=== PATIENT | male | born 1940 | race Caucasian/White ===

== ENCOUNTER 2018-04-29 08:34 | Emergency (ER) | payer MEDICARE, BC ==
[2018-04-29] MEDS ORDERED: Pantoprazole IV* 40 MG IV ONE (09:28)
[2018-04-29] MEDS ORDERED: NS 0.9% 1000 ML* 1,000 ML IV SCH (09:30)
[2018-04-29 10:01] LABS: INR 0.95 (0.77-1.02)
[2018-04-29 10:27] LABS: ABS Basophils 0 10^3/ul (0-0.2); ABS Eosinophils 0.1 10^3/ul (0-0.6); ABS Lymphocytes 0.9 10^3/ul (1.0-4.8); ABS Monocytes 0.8 10^3/ul (0-0.8); ABS Neutrophils 9.3 10^3/ul (1.5-7.7); ABS Nucleated RBC 0 10^3/ul; Eosinophil % 0.6 % (0-6); Hematocrit 38 % (42-52); Hemoglobin 12.1 g/dl (14.0-18.0); Mean Corpuscular HGB Conc 32 g/dl (31-36); Mean Corpuscular Hemoglobin 31 pg (27-31); Mean Corpuscular Volume 98 fL (80-94); Mean Platelet Volume 9.3 um3 (7.4-10.4); Nucleated Red Blood Cells % 0; Platelet Count 175 10^3/ul (150-450); Red Blood Count 3.88 10^6/ul (4.00-5.40); Red Cell Distribution Width 15 % (10.5-15); White Blood Count 11.2 10^3/ul (3.5-10.8)
[2018-04-29 10:39] LABS: EGFR Non-African American 37.2 (>60)
--- NOTE | 2018-04-29 10:42 | RAD ---
Indication: Vomiting, diarrhea. CT of the abdomen and pelvis was performed without oral or IV contrast administration. Coronal and sagittal reconstructed images were obtained. The lung bases demonstrate no pleural fluid, nodules or masses. Heart is of normal size without evidence of pericardial effusion. Liver is normal in size. No focal lesions or intrahepatic ductal dilatation is noted. The gallbladder has been surgically resected. The common duct is not dilated. The pancreas demonstrates no mass or pancreatic duct dilatation. The spleen is normal in size. No adrenal masses are noted. The kidneys demonstrate no hydronephrosis in either kidney. No retroperitoneal lymphadenopathy is noted. No dilated loops of bowel are noted. Aorta and inferior vena cava are unremarkable. CT of the pelvis demonstrates no retroperitoneal or pelvic lymphadenopathy. Urinary bladder is unremarkable. Diverticulosis of the sigmoid colon without definite evidence of diverticulitis is noted. No hernias are noted. No free fluid is identified. There is a hiatal hernia present. IMPRESSION: No definite bowel obstruction is noted. Diverticulosis of the sigmoid colon without evidence of diverticulitis. Patient is status post cholecystectomy. There is a hiatal hernia present.
--- NOTE | 2018-04-29 13:27 | ED ---
Sergo Polanco Tariq, scribed for Vlad Neri MD on 04/29/18 at 1056 . Complex/Multi-Sys Presentation - HPI Summary HPI Summary: A 77 y/o male COLBY presents to ED c/o V/D. According to the pt, he woke up this morning with V/D. He noted that his emesis was brown and reminds him of when he had an upper GI bleed previously. As per triage, "coffee ground emesis started this AM". Pt denies abdominal pain and lightheadedness. PMHx of stomach ulcers. Currently, pt is not on any blood thinners. - History Of Current Complaint Chief Complaint: EDNauseaVomitDiarrh Time Seen by Provider: 04/29/18 08:56 Hx Obtained From: Patient Timing: Hours - Earlier this morning Associated Signs And Symptoms: Negative: Abdominal Pain - Allergies/Home Medications Allergies/Adverse Reactions: Allergies Allergy/AdvReac Type Severity Reaction Status Date / Time carbidopa [From Sinemet] Allergy Hallucinati Verified 04/29/18 09:20 ons gentamicin Allergy Unknown Verified 04/29/18 09:20 Reaction Details levodopa [From Sinemet] Allergy Hallucinati Verified 04/29/18 09:20 ons magnesium citrate Allergy Unknown Verified 04/29/18 09:20 Reaction Details sulfamethoxazole Allergy Unknown Verified 04/29/18 09:20 [From Bactrim] Reaction Details trimethoprim [From Bactrim] Allergy Unknown Verified 04/29/18 09:20 Reaction Details Home Medications: Home Medications Acetaminophen/Diphenhydramine [Acetaminophen Pm Caplet] 2 each PO DAILY [History Confirmed 04/29/18] Allopurinol [Zyloprim 300 MG TAB] 300 mg PO DAILY 04/29/18 [History Confirmed ] Bisoprolol/Hydrochlorothiazide [Bisoprolol-Hctz 2.5-6.25 mg Tb] 1 each PO DAILY 04/29/18 [History Confirmed 04/29/18] Cholecalciferol (Vitamin D3) [D 5000] 5,000 unit PO DAILY 04/29/18 [History Confirmed 04/29/18] Cilostazol TAB* [Pletal TAB*] 100 mg PO BID 04/29/18 [History Confirmed 04/29/18 ] Ezetimibe/Simvastatin [Vytorin 10-40 mg] 1 tab PO BEDTIME 04/29/18 [History Confirmed 04/29/18] Inulin/Chromium Picolinate [Fiber Gummies] 1 each PO BID 04/29/18 [History Confirmed 04/29/18] Multivit-Mins/Iron/Folic/Lycop [Centrum Ultra Mens] 1 tab PO DAILY 04/29/18 [ History Confirmed 04/29/18] Pantoprazole Sodium 40 mg PO DAILY 04/29/18 [History Confirmed 04/29/18] Pioglitazone HCl 30 mg PO DAILY 04/29/18 [History Confirmed 04/29/18] Ramipril [Altace] 5 mg PO DAILY 04/29/18 [History Confirmed 04/29/18] Sodium Bicarbonate 650 mg PO BID 04/29/18 [History Confirmed 04/29/18] Sucralfate [Carafate] 1 gm PO ACHS 04/29/18 [History Confirmed 04/29/18] dilTIAZem HCl [Diltiazem HCl ER] 180 mg PO DAILY 04/29/18 [History Confirmed ] PMH/Surg Hx/FS Hx/Imm Hx Endocrine/Hematology History: Reports: Hx Diabetes Cardiovascular History: Denies: Hx Hypertension Infectious Disease History: No Infectious Disease History: Denies: Traveled Outside the [place] in Last 30 Days - Family History Known Family History: Positive: Other - Colon Cancer, HBP, Heart Disease, Parkinsons Negative: Diabetes - Social History Alcohol Use: None Substance Use Type: Reports: None Smoking Status (MU): Former Smoker Review of Systems Negative: Fever Positive: Vomiting, Diarrhea. Negative: Abdominal Pain Neurological: Other - NEGATIVE: lightheadedness All Other Systems Reviewed And Are Negative: Yes Physical Exam - Summary Physical Exam Summary: General:Brown secretions on chin and legs. No acute distress. Skin:warm, color reflects adequate perfusion, dry Head:normal Eyes:EOMI, EVAN ENT:normal Neck:supple, nontender Respiratory:CTA, breath sounds present Cardiovascular:RRR Abdomen:soft, nontender. Non-tender to palpation. Bowel:present. Positive bowel sounds. Musculoskeletal:normal, strength/ROM intact Neurological:sensory/motor intact, A&O x3 Psychological:affect/mood appropriate Rectal Exam: Stool was brown. Triage Information Reviewed: Yes Vital Signs On Initial Exam: Initial Vitals Temp Pulse Resp BP Pulse Ox 97.6 F 83 16 165/64 96 04/29/18 08:37 04/29/18 08:37 04/29/18 08:37 04/29/18 08:37 04/29/18 08:37 Vital Signs Reviewed: Yes Diagnostics - Vital Signs Vital Signs Temp Pulse Resp BP Pulse Ox 04/29/18 10:40 79 17 152/60 92 04/29/18 10:18 78 18 96 04/29/18 10:00 78 18 98 04/29/18 09:48 80 15 142/63 99 04/29/18 09:18 81 20 150/63 97 04/29/18 09:00 82 23 96 04/29/18 08:48 81 19 157/68 96 04/29/18 08:47 80 16 96 04/29/18 08:37 97.6 F 83 16 165/64 96 - Laboratory Lab Results: Lab Results 04/29/18 04/29/18 04/29/18 Range/Units 09:42 10:03 10:03 WBC 11.2 H (3.5-10.8) 10^3/ul RBC 3.88 L (4.00-5.40) 10^6/ul Hgb 12.1 L (14.0-18.0) g/dl Hct 38 L (42-52) % MCV 98 H (80-94) fL MCH 31 (27-31) pg MCHC 32 (31-36) g/dl RDW 15 (10.5-15) % Plt Count 175 (150-450) 10^3/ul MPV 9.3 (7.4-10.4) um3 Neut % (Auto) 83.6 H (38-83) % Lymph % (Auto) 8.0 L (25-47) % [place] % (Auto) 7.5 H (0-7) % Eos % (Auto) 0.6 (0-6) % Baso % (Auto) 0.3 (0-2) % Absolute Neuts (auto) 9.3 H (1.5-7.7) 10^3/ul Absolute Lymphs (auto) 0.9 L (1.0-4.8) 10^3/ul Absolute Monos (auto) 0.8 (0-0.8) 10^3/ul Absolute Eos (auto) 0.1 (0-0.6) 10^3/ul Absolute Basos (auto) 0 (0-0.2) 10^3/ul Absolute Nucleated RBC 0 10^3/ul Nucleated RBC % 0 INR (Anticoag Therapy) 0.95 (0.77-1.02) APTT 31.3 (26.0-36.3) seconds Sodium 135 (135-145) mmol/L Potassium 4.8 (3.5-5.0) mmol/L Chloride 103 (101-111) mmol/L Carbon Dioxide 25 (22-32) mmol/L Anion Gap 7 (2-11) mmol/L BUN 36 H (6-24) mg/dL Creatinine 1.78 H (0.67-1.17) mg/dL Est GFR ( Amer) 45.0 (>60) Est GFR (Non-Af Amer) 37.2 (>60) BUN/Creatinine Ratio 20.2 H (8-20) Glucose 164 H (70-100) mg/dL Lactic Acid (0.5-2.0) mmol/L Calcium 9.6 (8.6-10.3) mg/dL Total Bilirubin 0.30 (0.2-1.0) mg/dL AST 14 (13-39) U/L ALT 9 (7-52) U/L Alkaline Phosphatase 69 (34-104) U/L C-Reactive Protein 4.80 (<8.01) mg/L B-Natriuretic Peptide ( - 100) pg/mL Total Protein 6.8 (6.4-8.9) g/dL Albumin 3.6 (3.2-5.2) g/dL Globulin 3.2 (2-4) g/dL Albumin/Globulin Ratio 1.1 (1-3) Lipase 28 (11.0-82.0) U/L Blood Type Antibody Screen 04/29/18 04/29/18 04/29/18 Range/Units 10:03 10:03 10:03 WBC (3.5-10.8) 10^3/ul RBC (4.00-5.40) 10^6/ul Hgb (14.0-18.0) g/dl Hct (42-52) % MCV (80-94) fL MCH (27-31) pg MCHC (31-36) g/dl RDW (10.5-15) % Plt Count (150-450) 10^3/ul MPV (7.4-10.4) um3 Neut % (Auto) (38-83) % Lymph % (Auto) (25-47) % [place] % (Auto) (0-7) % Eos % (Auto) (0-6) % Baso % (Auto) (0-2) % Absolute Neuts (auto) (1.5-7.7) 10^3/ul Absolute Lymphs (auto) (1.0-4.8) 10^3/ul Absolute Monos (auto) (0-0.8) 10^3/ul Absolute Eos (auto) (0-0.6) 10^3/ul Absolute Basos (auto) (0-0.2) 10^3/ul Absolute Nucleated RBC 10^3/ul Nucleated RBC % INR (Anticoag Therapy) (0.77-1.02) APTT (26.0-36.3) seconds Sodium (135-145) mmol/L Potassium (3.5-5.0) mmol/L Chloride (101-111) mmol/L Carbon Dioxide (22-32) mmol/L Anion Gap (2-11) mmol/L BUN (6-24) mg/dL Creatinine (0.67-1.17) mg/dL Est GFR ( Amer) (>60) Est GFR (Non-Af Amer) (>60) BUN/Creatinine Ratio (8-20) Glucose (70-100) mg/dL Lactic Acid 1.1 (0.5-2.0) mmol/L Calcium (8.6-10.3) mg/dL Total Bilirubin (0.2-1.0) mg/dL AST (13-39) U/L ALT (7-52) U/L Alkaline Phosphatase (34-104) U/L C-Reactive Protein (<8.01) mg/L B-Natriuretic Peptide 88 ( - 100) pg/mL Total Protein (6.4-8.9) g/dL Albumin (3.2-5.2) g/dL Globulin (2-4) g/dL Albumin/Globulin Ratio (1-3) Lipase (11.0-82.0) U/L Blood Type O Positive Antibody Screen Pending Result Diagrams: 04/29/18 10:03 04/29/18 10:03 Lab Statement: Any lab studies that have been ordered have been reviewed, and results considered in the medical decision making process. - CT CT A/P CT Interpretation Completed By: Radiologist - No definite bowel obstruction is noted. Diverticulosis of the sigmoid colon without evidence of diverticulitis. Patient is status post cholecystectomy. There is a hiatal hernia present. ED PHYSICIAN REVIEWED THIS RADIOLOGY REPORT. - EKG 0937 Cardiac Rate: NL - 79 BPM EKG Rhythm: Sinus Rhythm ST Segment: Normal Ectopy: None EKG Interpretation: Borderline PV interval and RI is 217. Right bundle branch block. Re-Evaluation - Re-Evaluation First Eval Re-Evaluation Time: 11:21 Comment: No vomitting. Discussed results. Complex Multi-Symp Course/Dx Course Of Treatment: HOSPITALIST CONSULTED AND SAW PATIENT IN THE ED. [facility] DOES NOT HAVE GI COVERAGE TODAY. THE PATIENT HAS A HX OF UPPER GI BLEEDS THEREFORE, TRANSFER TO [facility] WHERE THEY HAVE GI COVERAGE. ACCEPTED IN TRANSFER BY DR MORATAYA. STABLE AT TRANSFER. CRITICAL CARE TIME LESS THAN 30 MINUTES. - Diagnoses Provider Diagnoses: Vomiting, Diarrhea, GI bleed - Physician Notifications Discussed Care Of Patient With: Jabari Dos Santos - Concerned about GI bleed. Since there is no GI coverage, plan is to transfer to [facility] Time Discussed With Above Provider: 12:35 Discharge - Sign-Out/Discharge Documenting (check all that apply): Discharge/Admit/Transfer - Discharge Plan Condition: Stable Disposition: TRANS HIGHER LVL OF CARE FAC Referrals: Jose Giraldo MD [Primary Care Provider] - - Billing Disposition and Condition Condition: STABLE Disposition: Trans Higher Lvl of Care Fac The documentation as recorded by the Sergo jones Tariq accurately reflects the service I personally performed and the decisions made by me, Vlad Neri MD.
--- NOTE | 2018-04-29 13:33 | RAD ---
Indication: Vomiting. Single frontal view of the chest performed at 1005 hours was reviewed. No prior study is available.. No mediastinal shift is noted. Heart is of normal size and configuration. Lung day appear clear. Patient is status post changed sternal thoracotomy. IMPRESSION: NO ACTIVE CARDIOPULMONARY DISEASE IS NOTED.
[2018-04-29 14:58] VITALS: BP 152/70
--- NOTE | 2018-04-29 22:35 | CONS ---
[facility] MEDICINE CONSULTATION REPORT: DATE OF CONSULT: 04/29/18 - EMERGENCY DEPT PROVIDER: Jocelyn Brandt NP ATTENDING PHYSICIAN: Dr. Neri. CONSULTING PHYSICIAN: Dr. Aldair Dos Santos (dictated by Jocelyn Brandt NP). REASON FOR CONSULT: GI bleed. HISTORY OF PRESENT ILLNESS: Mr. De Santiago is a 77-year-old gentleman who carries a past history medical history significant for hypertension, diabetes, chronic kidney disease, gout, gastritis, increased triglycerides, peripheral vascular disease, TN at the age of 47, coronary artery disease with bypass, gastritis, bleeding ulcers in 2013, who presented to the emergency room after waking this morning and vomiting a large amount of dark brown emesis and having 2 episodes of diarrhea. The patient reports that yesterday he felt in his normal state of health. He denied any recent fever or chills, unintended weight loss. Denies any nausea, vomiting. Denies any abdominal pain. Denies any hemoptysis, cough or shortness of breath. Denies any chest pain or edema. Denies any hematuria or dysuria. Denies any focal weakness or visual complaints. Denies any dysphagia. Denies any arthralgias or myalgias. Denies any rashes or lesions. While in the emergency room, the patient was monitored, he had routine lab work drawn. His H and H on admission was 12.1 and 38. The patient does report that he has had a similar episode in 2013 and presented with the same symptoms of vomiting a large amount of dark brown emesis and at that bedtime he did not need clipping of his bleeding ulcers. Due to concern for gastrointestinal bleeding, we were asked by the emergency room physician to see and evaluate him for admission. PAST MEDICAL HISTORY: 1. Hypertension. 2. Diabetes. 3. Chronic kidney disease. 4. Gout. 5. Gastritis. 6. Increased triglycerides. 7. Peripheral vascular disease. 8. TN, initially first TN at the age of 47. 9. History of coronary artery disease with bypass surgery. 10. Bleeding ulcers. PAST SURGICAL HISTORY: 1. Fistula repair in 1983. 2. Quadruple bypass in 2007. 3. Cholecystectomy in 2012. 4. Bleeding ulcer clipping in 2013. 5. Carotid endarterectomy in October 2014. HOME MEDICATIONS: Include: 1. Vytorin 10/40 one daily. 2. Ramipril 15 mg p.o. daily. 3. Cilostazol 100 mg p.o. daily. 4. Bisoprolol/hydrochlorothiazide 6/6.25 one tablet daily. 5. Multivitamin 1 tablet daily. 6. Vitamin D. 7. Fiber pills. 8. Tylenol PM 2 tablets p.o. daily. 9. Diltiazem ER 180 mg p.o. daily. 10. Actos 30 mg p.o. daily. 11. Protonix 40 mg p.o. daily. 12. Sucralfate 1 g q.i.d. 13. Sodium bicarb 10 g p.o. b.i.d. 14. Allopurinol 300 mg p.o. daily. ALLERGIES: The patient has an allergy to SINEMET, MAG CITRATE, GENTAMICIN, and BACTRIM. FAMILY HISTORY: He does report brothers and father with histories of MIs and hypertension. Denies any diabetes. Does report mother with a history of colon cancer. SOCIAL HISTORY: He is a former tobacco smoker. He quit approximately 30 years ago. Prior to that, he smoked for 35 years approximately 1-pack per day. He denies any alcohol use. Denies any illicit drug use. He is . His surrogate decision maker in the event he is unable to make his own decisions is his , Genevieve De Santiago, her phone number is [phone]. He is a full code. REVIEW OF SYSTEMS: General: There has been no fever, chills, or unintended weight loss. Cardiac: No chest pain or edema. Respiratory: Denies any cough , congestion, shortness of breath, orthopnea, or nocturnal dyspnea. GI: He does report some nausea and vomiting of brown emesis. He does report 2 episodes of diarrhea. Denies any abdominal pain. : Denies any hematuria or dysuria. Neurological: He denies any focal weakness or sensory loss. Eyes: He denies any visual changes. ENT: Denies any dysphagia. Musculoskeletal: Denies any arthralgias or myalgias. Skin: Denies any rashes or lesions. Psych : He denies any psychosis or anxiety. PHYSICAL EXAMINATION: Vital Signs: Blood pressure 154/61, heart rate was 80, respirations were 20, O2 saturation was 97%, temperature was 97.6. General: Mr. De Santiago is a 77-year-old male, sitting on the stretcher in the emergency room. He does not appear to be in any acute distress. Neuro: He is alert and oriented x3. He is able to move all extremities. There is no focal weakness. Extraocular eye movements are intact. Heart: S1, S2, is regular rate and rhythm. Lungs are clear to auscultation bilaterally. No accessory muscle use. Abdomen: Soft and nontender. Bowel sounds are positive x4 and active. Extremities: There is no cyanosis or edema. Skin is intact. He does have some dried emesis on bilateral hands that appears to be coffee-ground dark brown. DIAGNOSTIC STUDIES/LAB DATA: WBCs were 11.2, RBCs 3.88, hemoglobin was 12.1, hematocrit was 38, platelet count was 175. INR was 0.95. Sodium 135, potassium 4.8, chloride 103, carbon dioxide was 25, anion gap of 7, BUN was 36, creatinine 1.78. Lactic acid was 1.1, calcium 9.6. ASTs were 14, ALTs were 9. C-reactive protein was 4.80. BNP was 88, lipase was 28. He had a CT of the abdomen and pelvis, radiologist's impression: No definite bowel obstruction is noted. Diverticulosis of the sigmoid colon without evidence of diverticulitis. The patient is status post cholecystectomy. There is a hiatal hernia that is present. There was no free fluid identified. Urinary bladder was unremarkable. He had a chest x-ray, radiologist's impression: No active cardiopulmonary disease is noted. Electrocardiogram, which shows a sinus rhythm of a rate of 79 with a right bundle branch block. IMPRESSION AND PLAN: Mr. De Santiago is a 77-year-old male with past medical history that was significant for hypertension, diabetes, chronic kidney disease , coronary artery disease with bypass surgery, history of gastritis and bleeding ulcers, who presented to the emergency room today for further evaluation of vomiting, dark brown emesis and concern for gastrointestinal bleeding. We were asked for the emergency room physicians to evaluate the patient for a possible admission. Our recommendations are as follows: 1. Gastrointestinal bleeding: I recommend that the patient be transferred to tertiary care center where he can be properly managed for gastrointestinal bleeding as there is no GI coverage in the event the patient should start having excessive gastrointestinal bleeding. I have discussed this with Dr. Neri who has agreed to transfer the patient to a tertiary center for further management. 2. Code status: He is a full code. TIME SPENT: Time spent on this consultation was approximately 45 minutes, more than half the time was spent with the patient and the family at the bedside reviewing the events leading thus far to his hospitalization, performing physical exam and reviewing my plan of care and recommendations for transfer to tertiary center. I did discuss this with the ER attending, Dr. Neri who is in agreement with that plan. I also discussed that with my attending, Dr. Aldair Dos Santos, who was in agreement with my plan. JOCELYN BRANDT, STONE REPAIRER [id number]/CPS #: [id number] ANTHONY
== END 2018-04-29 14:57 | disposition short-term general hospital (02) ==
LOC: ED 08:34
DX: R11.10 Vomiting, unspecified (principal); R19.7 Diarrhea, unspecified; K92.2 Gastrointestinal hemorrhage, unspecified; K44.9 Diaphragmatic hernia without obstruction or gangrene; K57.30 Diverticulosis of large intestine without perforation or abscess without bleeding; Z90.49 Acquired absence of other specified parts of digestive tract; Z87.891 Personal history of nicotine dependence; Z88.3 Allergy status to other anti-infective agents; Z88.2 Allergy status to sulfonamides; Z88.8 Allergy status to other drugs, medicaments and biological substances
CPT/HCPCS: 36415; 71045; 74176; 80053; 82270; 83605; 83690; 83880; 85025; 85610; 85730; 86140; 86850; 86900; 86901; 93005; 96361; 96374; 99285